=== PATIENT | female | born 1960 | race Caucasian/White ===

== ENCOUNTER → 2018-03-20 | Day surgery (SDC) | payer OTHER ==
[~2018-03-20] VITALS: Ht 165.1 cm; Wt 50.0 kg
[~2018-03-20] MED LIST: ACETAMINOPHEN/HYDROcodone 325 MG/5 MG TAB PO PRN; BUPIVACAINE HCL PF 0.25% 10 ML VIAL INFIL ONE; BUPIVACAINE HCL PF 0.25% 30 ML VIAL ONE; CELE50CA PO; CHLORHEXIDINE GLUCONATE 2 % 1 PACK (2 CLOTHS) TOPICAL PRN; CIPR250T52 PO; CIPROFLOXACIN 500 MG TAB PO ONE; CYCL5TAB PO; DIAZ10TA PO; DILA100C PO; FAMOTIDINE 20 MG/2 ML VIAL ONE; HYDR-3288 PO; HYDROmorphone HCL PF 2 MG/ML VIAL ONE; LIDOCAINE HCL 2% 20 ML VIAL INFIL ONE; LIDOCAINE HCL 2% 50 ML VIAL ONE; MEPERIDINE HCL 50 MG/ML VIAL IM PRN; METOPROLOL TARTRATE 25 MG TAB PO PRN; MIDAZOLAM HCL 2 MG/2 ML VIAL ONE; MORPHINE SULFATE 8 MG/ML INJ ONE; NEOMYCIN/POLYMYXIN 1 ML G.U. IRRIGANT ONE; NEXI20CA PO; POVIDONE IODINE 5% (ANTISEPSIS KIT) 4 APPLICATIONS EACH NARE PRN; SODIUM CHLORID 0.9% 500 ML IV PRN; ceFAZolin 1,000 MG/NS 100 ML IV SCH
[2018-03-20] MEDS: LACTATED RINGER'S 1000 ML IV PRN ×2 (12:05→13:50)
[2018-03-20 14:05] VITALS: PULSE 70
--- NOTE | 2018-03-20 14:41 | MP ---
cc: Jeison Ly MD DATE OF OPERATION: 03/20/2018 DATE OF PROCEDURE: 03/20/2018 PREOPERATIVE DIAGNOSIS: Right fifth metacarpal fracture. POSTOPERATIVE DIAGNOSIS: Open right fifth metacarpal fracture. PROCEDURE PERFORMED: 1. Right fifth metacarpal open reduction and debridement of skin, subcutaneous tissue, and bone. 2. Open reduction and pinning, right fifth metacarpal. 3. Use of image intensifier. SURGEON: Jeison Ly III, MD DESCRIPTION OF PROCEDURE: The patient was brought to the operating room, placed supine on the operating table. After the correct site and side of surgery were verified by members of each team in the room multiple times including the patient and myself and after adequate preoperative markings and preoperative written consent was verified by everyone and after adequate preoperative timeout was performed to everyone's satisfaction, after adequate general anesthesia had been achieved, the right upper extremity was prepped and draped in traditional sterile surgical fashion. Using the mini C-arm, the site of the intended procedure was verified, a 50:50 mixture of 2% plain lidocaine and 0.5% plain Marcaine was infiltrated into the skin and subcutaneous tissue in the area of the fracture. The limb was exsanguinated with an Regan wrap and a highly placed well-padded axillary tourniquet was inflated to 200 mmHg for approximately 45 minutes. A longitudinally oriented incision dorsal ulnarly along the fifth metacarpal was made, and carried down through skin and subcutaneous tissue and blunt dissection was performed. The area of the fracture was identified and inflammatory rind which looked postinfectious was identified in the area of the puncture through the skin. This was debrided and cultures were obtained. The extensor tendons were then retracted out of the way and the fracture was opened. It was debrided. There was a lot of necrotic fragmented bone within the shaft of the metacarpal, and this was debrided and additional deep cultures were obtained. Two separate 0.045 cm K-wires were then introduced in an antegrade fashion in the metacarpal and the entire wound was then thoroughly irrigated with 1 liters worth of saline irrigation. The 2 fragments of bone were reduced and held in place manually and then the 2 separate K-wires at different angles were advanced in a retrograde fashion, securing the reduction. Passive range of motion revealed no evidence of any malangulation or malrotation. The pins were tailored to length, cut and bent and Jurgan balls applied on one. There were no other anatomic abnormalities identified. Final x-rays were obtained. The extensor tendons were intact. The skin edges were reapproximated using running and interrupted 4-0 chromic sutures. The hand and arm were thoroughly cleansed and dried. Betadine, Adaptic dressings were applied on top of the wound. Betadine and Xeroform was applied around the pins. The hand and arm were thoroughly cleansed and dried and then wrapped in a well-padded, well-molded whole hand immobilizing splint, short arm length, completely immobilizing the third, fourth and fifth fingers. The axillary tourniquet was released prior to this and the hand and all the fingers became immediately soft, pink, and warm, had brisk capillary refill of less than 2 seconds. Sponge, needle and instrument counts were correct at the end of the case as reported by the nurses in the room. MD RACHAEL Flores/EILEEN , 02:14 PM , 02:40 PM
[2018-03-20 16:15] VITALS: BP 118/62; PULSE 74; RESP 16; TEMP 97.7; O2SAT 95
--- NOTE | 2018-03-22 09:23 | EKG ---
Date Performed: 03/20/2018 Time Performed: 12:21:47 PTAGE: 57 years EKG: Sinus rhythm NORMAL ECG NO PREVIOUS TRACING DOCTOR: Judi Logan Interpretating Date/Time 03/22/2018 09:17:31
== END | disposition home or self-care (01) ==
LOC: PHSDC 10:27
PROVIDERS: ATTEND Orthopaedic Surgery Hand Surgery
DX: S62.306B Unspecified fracture of fifth metacarpal bone, right hand, initial encounter for open fracture (principal); W19.XXXA Unspecified fall, initial encounter; Z01.810 Encounter for preprocedural cardiovascular examination
CPT/HCPCS: 01830; 26615; 87070; 87176; 87205; 88305; 88311; 93005; J0690; J1170; J2250; J2270; J3010; J7120; 76000